=== PATIENT | male | born 1960 | race Caucasian/White ===

== ENCOUNTER 2024-09-01 20:17 | Inpatient (IN) | payer OTHER ==
[~2024-09-01] VITALS: Ht 162.6 cm; Wt 94.3 kg
[2024-09-01] MEDS ORDERED: VANCOMYCIN 2 GRAM/400 ML (PEG) 400 ML IV ONE (21:45)
[2024-09-01] MEDS: CEFEPIME 2 GM in SODIUM CHLORIDE 0.9% 100 ML IV SCH (22:00)
[2024-09-01] MEDS ORDERED: SODIUM CHLORIDE 0.9% 250ML 250 ML ONE (22:10)
[2024-09-01] MEDS ORDERED: CEFEPIME HCL 1 GM VIAL ONE (22:11)
[2024-09-01] MEDS ORDERED: IOPAMIDOL 370 MG/ML 100 ML INFUS..BTL INJ ONE (22:14)
[2024-09-01] MEDS: SODIUM CHLORIDE 0.9% 1000ML 1,000 ML IV SCH (22:45)
[2024-09-01] MEDS: ACETAMINOPHEN 325 MG TAB PO ONE (22:46)
[2024-09-01] MEDS: KETOROLAC TROMETHAMINE 30 MG/ML VIAL IV STA (22:46)
[2024-09-01] MEDS: Vancomycin IV 2 GM in SODIUM CHLORIDE 0.9% 250ML 250 ML IV ONE (23:31)
[2024-09-02] VITALS (9 sets, daily range): BP systolic 128–153; BP diastolic 77–92; PULSE 77–88; RESP 17–18; TEMP 97.8–98.6; O2SAT 96–99
[2024-09-02] MEDS ORDERED: ACETAMINOPHEN 325 MG TAB PO PRN
[2024-09-02] MEDS ORDERED: ONDANSETRON HCL INJ 2MG/ML 2ML 2 MG/ML VIAL IV PRN
[2024-09-02] MEDS: SODIUM CHLORIDE 0.9% 1000ML 1,000 ML IV SCH (02:16)
[2024-09-02] MEDS ORDERED: LOSARTAN POTASS50 MG PO (02:25)
[2024-09-02] MEDS ORDERED: KETOROLAC TROMETHAMINE 30 MG/ML VIAL IV PRN (05:00)
[2024-09-02 10:50] LABS: BASOPHILS # (AUTO) 0.1 (0.0-0.1); BASOPHILS % 0.4 % (0.0-1.0); EOSINOPHILS # (AUTO) 0.2 (0.0-0.4); EOSINOPHILS % 1.6 % (0.0-6.0); HEMATOCRIT 38.6 % (38.2-49.6); HEMOGLOBIN 12.6 g/dL (14.0-18.0); LYMPHOCYTES # (AUTO) 1.2 (1.0-3.2); LYMPHOCYTES % 9.7 % (18.0-39.1); MEAN CORPUSCULAR HEMOGLOBIN 33.2 pg (28-32); MEAN CORPUSCULAR HGB CONC 32.6 g/dL (31-35); MEAN CORPUSCULAR VOLUME 101.8 fL (81-99); MONOCYTES # (AUTO) 1.3 (0.2-0.8); MONOCYTES % 10.5 % (4.4-11.3); NEUTROPHILS # (AUTO) 9.2 (2.1-6.9); NEUTROPHILS % 77.5 % (38.7-80.0); PLATELET COUNT 317 x10e3/uL (140-360); RED BLOOD COUNT 3.79 x10e6/uL (4.3-5.7); RED CELL DISTRIBUTION WIDTH 12.7 % (11.7-14.4); WHITE BLOOD COUNT 11.85 x10e3/uL (4.8-10.8)
[2024-09-02] MEDS: LOSARTAN POTASSIUM 25 MG TAB PO SCH (11:30)
[2024-09-02] MEDS ORDERED: ZYVOX100 MG/5 M PO (13:14)
[2024-09-02] MEDS ORDERED: ACIDOPHILUS1 EAC1 PO (13:14)
[2024-09-02] MEDS: Vancomycin IV 1.5 GM in SODIUM CHLORIDE 0.9% 500ML 500 ML IV ONE (13:40)
[2024-09-02] MEDS ORDERED: ZYVOX600 MG PO (19:07)
== END 2024-09-02 16:30 | disposition home or self-care (01) | DRG 603 ==
LOC: FSED 21:15 → ERHOLD 09-02 00:05 → MED/SURG 09-02 01:57
PROVIDERS: ADMIT Internal Medicine; ATTEND Internal Medicine
DX: L03.114 Cellulitis of left upper limb (principal); I10 Essential (primary) hypertension; R00.0 Tachycardia, unspecified
CPT/HCPCS: 36415; 80053; 81003; 81025; 83605; 85025; 87040; 93005; 99252; 99284; J0692; J1885; J7030; J7040; J7050; Q9967